=== PATIENT | female | born 1995 | race Hispanic/Latino ===

== ENCOUNTER 2024-12-11 16:13 | Emergency (ER) | payer OTHER, SELFPAY ==
[2024-12-11] VITALS (11 sets, daily range): BP systolic 111–127; BP diastolic 71–87; PULSE 58–79; RESP 13–24; TEMP 36.5; O2SAT 97–100; BMI 26.6
--- NOTE | 2024-12-11 16:47 | EKG_ITS ---
[address] [address] [address] [address] Test Date: 2024-12-11 Pat Name: Marlen Keenan Department: Room: Gender: Female Support Worker: MIKE : 1995 Requested By: Order Number: [id number] Reading MD: Ramón Moyer MD Measurements Intervals Gilbert Rate: 70 P: 40 ME: 126 QRS: 51 QRSD: 78 T: 46 QT: 382 QTc: 412 Interpretive Statements Normal sinus rhythm Electronically Signed On 12-11-2024 17:16:56 PDT by Ramón Moyer MD
[2024-12-11 17:11] LABS: Add Manual Diff / Slide Review NO; Hematocrit 41.6 % (36-46); Hemoglobin 13.7 g/dL (12.0-16.0); Lymphocytes Absolute Auto 2700 /uL (1100-4500); Mean Corpuscular HGB Conc 33.0 % (30-36); Mean Corpuscular Hemoglobin 27.7 PG (26-34); Mean Corpuscular Volume 83.9 fL (80-100); Platelet Count 286 X10^3/uL (150-400)
[2024-12-11 17:22] LABS: Alanine Aminotransferase 19 IU/L (<35); Albumin 4.6 g/dL (3.5-5.0); Albumin Globulin Ratio 1.5 (1.0-2.8); Alkaline Phosphatase 78 U/L (38-126); Blood Urea Nitrogen 11 mg/dL (7-17); Calcium 9.4 mg/dL (8.4-10.2); Carbon Dioxide 26 mmol/L (22-32); Chloride 102 mmol/L (98-107); Estimated Glomerular Filt Rate > 60 mL/min (>60); Globulin 3.1 g/dL (1.7-4.1); Glucose 91 mg/dL (70-99); HEMOLYSIS < 15 (0-50); Potassium 3.8 mmol/L (3.4-5.1); Sodium 137 mmol/L (137-145); Total Protein 7.7 g/dL (6.3-8.2)
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
[2024-12-11 19:15] LABS: Creatine Kinase 92 U/L (30-135)
--- NOTE | 2024-12-11 19:21 | DI.RAD.S_ITS ---
PROCEDURE: XR CHEST 1V INDICATIONS: electrocution, chest pain TECHNIQUE: One view of the chest was acquired. COMPARISON: None. FINDINGS: Surgical changes and devices: None. Lungs and pleura: Lungs are clear. No pleural effusions or pneumothorax. Mediastinum: Mediastinal contours appear normal. Heart size is normal. Bones and chest wall: No suspicious bony lesions. Overlying soft tissues appear unremarkable. IMPRESSION: No acute cardiopulmonary abnormality is seen. Approved by: Maki Donald M.D.,Ph.D. on 12/11/2024 at 21:10
[2024-12-11 19:38] LABS: Troponin I < 0.012 ng/mL (0.01-0.034)
[2024-12-11 20:13] LABS: Troponin I < 0.012 ng/mL (0.01-0.034)
--- NOTE | 2024-12-11 21:41 | DI.CT.S_ITS ---
PROCEDURE: CT ANGIO CHEST ABDOMEN PELVIS INDICATIONS: dissection protocol, electrocution injury, intermittent CP TECHNIQUE: Precontrast 5 mm thick sections acquired from the lung apices to the iliac crests. After the administration of intravenous contrast, 2.5 mm thick sections again acquired from the lung apices to the iliac crests. Maximum intensity projection (MIP) oblique sagittal and coronal reformats were then acquired. For radiation dose reduction, the following was used: automated exposure control. COMPARISON: None. FINDINGS: Image quality: Diagnostic. AORTA: No aortic aneurysm. No acute aortic syndrome. CHEST: Lower Neck: No enlarged lymph nodes. Thyroid: No thyroid nodules which require sonographic evaluation. Axillae: No enlarged lymph nodes. Chest Wall: Unremarkable. Lungs and Pleura: No pneumothorax or pleural effusions. No consolidation or suspicious nodules. Heart: Heart size is normal. No pericardial effusion. Thoracic Vessels: Pulmonary arteries demonstrate normal size. Mediastinum and Seema: No enlarged lymph nodes. Esophagus: No wall thickening. No hiatal hernia. ABDOMEN: Liver: No solid mass. Gallbladder: No radiopaque gallstones or wall thickening. Biliary ducts: No biliary dilation. Pancreas: No ductal dilation. Spleen: Size is within normal limits. Adrenal Glands: No adrenal nodules. Kidneys and Ureters: Nonobstructing punctate right interpolar calculus measuring 2 mm. No hydronephrosis. No solid mass. No complex renal cystic lesion which requires follow up. Stomach and Bowel: Normal colonic caliber, without significant wall thickening. Peritoneum: No abnormal intraperitoneal fluid. No free air. Ventral Wall: No hernia. Abdominal Nodes: No retroperitoneal or mesenteric adenopathy by size criteria. Vessels: Inferior vena cava is normal in size. PELVIS: Pelvic Organs: Unremarkable. Bladder: Unremarkable. Pelvic Nodes: No enlarged lymph nodes. Miscellaneous: No inguinal hernias are seen. Bones: Unremarkable. IMPRESSION: No aortic dissection or evidence of vascular injury. No acute process identified in the chest, abdomen or pelvis. Approved by: Maki Donald M.D.,Ph.D. on 12/11/2024 at 22:49
== END 2024-12-12 00:20 | disposition home or self-care (01) ==
PROVIDERS: Emergency Medicine; Emergency Provider Emergency Medicine
DX: T75.4XXA Electrocution, initial encounter (principal); R06.02 Shortness of breath; R07.9 Chest pain, unspecified; W86.1XXA Exposure to industrial wiring, appliances and electrical machinery, initial encounter; Y99.0 Civilian activity done for income or pay
CPT/HCPCS: 36415; 71045; 71275; 74174; 80053; 82550; 84484; 85025; 93005; 93010; 99281; 99291; Q9967

== ENCOUNTER → 2025-05-06 07:57 | Outpatient (CLI) | payer OTHER, SELFPAY ==
[2025-05-06 08:36] LABS: Hemoglobin A1C% w Est Avg Glu 5.0 % (4.0-6.0)
[2025-05-06 10:27] LABS: Glucose Tol Interpretation INTERPRETATION
[2025-05-06 11:04] LABS: Glucose 1 Hour 124 mg/dL (70-170)
[2025-05-06 11:45] LABS: Glucose 2 Hour 116 mg/dL (70-140)
== END ==
PROVIDERS: Visit Provider Transplant Surgery
DX: Z52.4 Kidney donor (principal)
CPT/HCPCS: 36415; 82951; 82952; 83036